=== PATIENT | female | born 1945 | race Caucasian/White ===

== ENCOUNTER → 2020-09-06 | Outpatient (CLI) | payer MEDICARE, OTHER | LOC: KOH-I 11:22 | DX: R91.1 Solitary pulmonary nodule (principal) | CPT/HCPCS: 71046 ==

== ENCOUNTER → 2020-10-17 | Outpatient (CLI) | payer MEDICARE, OTHER | LOC: KOH-I 11:25 | DX: M89.9 Disorder of bone, unspecified (principal); D47.2 Monoclonal gammopathy | CPT/HCPCS: 77075 ==

== ENCOUNTER → 2021-05-29 | Outpatient (CLI) | payer MEDICARE, OTHER | LOC: KOH-I 13:26 | DX: M89.9 Disorder of bone, unspecified (principal); D47.2 Monoclonal gammopathy; C92.00 Acute myeloblastic leukemia, not having achieved remission | CPT/HCPCS: 77075 ==